=== PATIENT | female | born 1970 | race Caucasian/White ===

== ENCOUNTER 2017-06-16 16:32 | Emergency (ER) | payer MEDICARE, MEDICAID ==
--- NOTE | 2017-06-16 17:20 | ER Document Report ---
HPI - HPI Patient complains to provider of: right lower leg bite, headache Onset: Just prior to arrival Quality of pain: Dull Pain Level: 0 Context: 47 yo female c/o onset of migraine frontal headache during ambulance ride that she called due to bee sting to medial right ankle. It itches. No swelling or systemic systems. Associated Symptoms: None Exacerbated by: Denies Relieved by: Denies Similar symptoms previously: No Recently seen / treated by doctor: No - ROS ROS below otherwise negative: Yes Systems Reviewed and Negative: Yes All other systems reviewed and negative Past Medical History - General Information source: Patient - Social History Smoking Status: Current Every Day Smoker Frequency of alcohol use: None Drug Abuse: None Lives with: Family Family History: Reviewed & Not Pertinent - Medical History Medical History: Negative Surgical Hx: Negative Vertical Provider Document - CONSTITUTIONAL Agree With Documented VS: Yes Exam Limitations: No Limitations General Appearance: No Apparent Distress - INFECTION CONTROL TRAVEL OUTSIDE OF THE [place] IN LAST 30 DAYS: No - HEENT HEENT: Normal ENT Exam, Normocephalic - NECK Neck: Supple - RESPIRATORY Respiratory: Breath Sounds Normal, No Respiratory Distress - CARDIOVASCULAR Cardiovascular: Regular Rate, Regular Rhythm - GI/ABDOMEN Gastrointestinal: Abdomen Soft, Abdomen Non-Tender - MUSCULOSKELETAL/EXTREMETIES Musculoskeletal/Extremeties: MAEW - NEURO Level of Consciousness: Awake, Alert Motor/Sensory: No Motor Deficit, No Sensory Deficit - DERM Notes: mild pink 3 cm area with central sting site, no swelling or lymphangitis. Course - Re-evaluation Re-evalutation: 06/16/17 19:02 Headache is level 1/5 she feels a lot better - Vital Signs Vital signs: Temp Pulse Resp BP Pulse Ox 97.6 F 102 H 20 127/84 H 95 06/16/17 16:49 06/16/17 16:49 06/16/17 16:49 06/16/17 16:49 06/16/17 16:49 Discharge - Discharge Clinical Impression: Insect sting, Headache Condition: Good Disposition: HOME, SELF-CARE Instructions: Intravenous Compazine for Headaches ([facility]), Use of Diphenhydramine , Headache ([facility]), Toradol Injection ([facility]) Additional Instructions: [id number] Benadryl for the itching insect bite Keep your fingernails clean and short so it does not get an infection Return to the emergency room any concerns See Dr. Marley your doctor for follow-up Referrals: BUD MARLEY, [Primary Care Provider] - Follow up as needed
[2017-06-16] MEDS ORDERED: NORMAL SALINE 1000 ML 1,000 ML IV ONE (17:24)
[2017-06-16] MEDS ORDERED: DIPHENHYDRAMINE HCL 50 MG/ML VIAL IV ONE (17:24)
[2017-06-16] MEDS ORDERED: PROCHLORPERAZINE EDISYLATE INJ 10 MG/2 ML VIAL IV ONE (17:24)
[2017-06-16] MEDS ORDERED: KETOROLAC TROMETHAMINE INJ/PF 30 MG/1 ML SDV IV ONE (17:24)
[2017-06-16 19:14] VITALS: BP 95/53
== END 2017-06-16 19:14 | disposition home or self-care (01) ==
LOC: ER 16:32
DX: T63.441A Toxic effect of venom of bees, accidental (unintentional), initial encounter (principal); G43.909 Migraine, unspecified, not intractable, without status migrainosus; F17.200 Nicotine dependence, unspecified, uncomplicated
CPT/HCPCS: 99282; 96361; 96374; 96375; J1200; J1885; J0780; J7030

== ENCOUNTER 2017-10-04 17:32 | Emergency (ER) | payer MEDICARE, MEDICAID ==
--- NOTE | 2017-10-04 19:25 | ER Document Report ---
ED Medical Screen (RME) - General Chief Complaint: Psych Problem Stated Complaint: SUICIDAL IDEATION Time Seen by Provider: 10/04/17 19:22 Notes: 47-year-old female was brought in by [facility]'s deputies for involuntary psychiatric evaluation. The patient had left the camper she was staying in an [place] and moved in with a dexter here in [place]. Her emotional support and will last night. She stated that she did not take that well. This morning the gentleman she moved in with sent her a text saying that she had to go. She at that point lost it and sent him a text that she is going to kill all her animals and herself. He at that point called the police and they brought her here. Patient stated she was not really suicidal she just wanted to make him feel bad. She denies any homicidal ideation denies visual auditory hallucinations. States she does feel sad because her emotional support animal has the camper she was staying in in [place] has been sold and she has no home and is homeless. TRAVEL OUTSIDE OF THE [place] IN LAST 30 DAYS: No - Related Data Allergies/Adverse Reactions: desipramine [From Norpramin] Allergy (Verified 06/16/17 16:36) levofloxacin [From Levaquin] Allergy (Verified 06/16/17 16:36) nortriptyline Allergy (Verified 06/16/17 16:36) bees Allergy (Uncoded 06/16/17 16:36) Past Medical History Renal/ Medical History: Denies: Hx Peritoneal Dialysis Past Surgical History: Reports: Hx Orthopedic Surgery - left knee, bilat elbows Physical Exam - Vital signs Vitals: Temp Pulse Resp BP Pulse Ox 98.5 F 81 18 112/72 97 10/04/17 17:58 10/04/17 17:58 10/04/17 17:58 10/04/17 17:58 10/04/17 17:58 - Notes Notes: Flat affect, currently denies suicidal thoughts or plan denies visual auditory hallucinations seems to have reasonable memory and judgment Course - Re-evaluation Re-evalutation: 10/04/17 19:24 Patient was brought in via police for psychiatric evaluation. Patient is requesting a psychiatric evaluation but is currently denying suicidal ideation or plan. Patient stated she does feel sad and despondent over having nowhere to live and that her emotional support animal has . - Vital Signs Vital signs: Temp Pulse Resp BP Pulse Ox 98.5 F 81 18 112/72 97 10/04/17 17:58 10/04/17 17:58 10/04/17 17:58 10/04/17 17:58 10/04/17 17:58 Doctor's Discharge - Discharge Referrals: BUD GALLO DO [Primary Care Provider] - Follow up as needed
[2017-10-04 19:57] LABS: ABSOLUTE BASOPHILS # (AUTO) 0.1 10^3/uL (0.0-0.2); ABSOLUTE EOSINOPHILS # (AUTO) 0.2 10^3/uL (0.0-0.6); ABSOLUTE LYMPHOCYTES (AUTO) 2.4 10^3/uL (0.5-4.7); ABSOLUTE MONOCYTES (AUTO) 0.8 10^3/uL (0.1-1.4); ABSOLUTE NEUT (AUTO) 6.6 10^3/uL (1.7-8.2); BASOPHILS % (AUTO) 0.5 % (0-2); EOSINOPHILS % (AUTO) 1.7 % (0-6); HEMATOCRIT 43.8 % (36.0-47.0); HEMOGLOBIN 14.4 g/dL (12.0-15.5); LYMPHOCYTES % (AUTO) 23.9 % (13-45); MEAN CORPUSCULAR HEMOGLOBIN 29.6 pg (27.0-33.4); MEAN CORPUSCULAR HGB CONC 32.9 g/dL (32.0-36.0); MEAN CORPUSCULAR VOLUME 90 fl (80-97); PLATELET COUNT 417 10^3/uL (150-450); RED BLOOD COUNT 4.86 10^6/uL (3.72-5.28); RED CELL DISTRIBUTION WIDTH 13.9 % (11.5-14.0); SEGMENTED NEUTROPHILS % (AUTO) 65.9 % (42-78); TOTAL CELLS COUNTED % (AUTO) 100 %
[2017-10-04 20:05] LABS: APPEARANCE,URINE CLOUDY; BILIRUBIN,URINE NEGATIVE (NEGATIVE); CALCIUM OXALATE CRYSTALS,URINE MANY /HPF; COLOR,URINE AMBER; GLUCOSE, URINE NEGATIVE (NEGATIVE); KETONES,URINE NEGATIVE (NEGATIVE); LEUKOCYTE ESTERASE,URINE MODERATE (NEGATIVE); NITRITE,URINE NEGATIVE (NEGATIVE); PROTEIN,URINE >=500 mg/dL (NEGATIVE); URINE SPECIFIC GRAVITY 1.031
[2017-10-04 20:17] LABS: ALANINE AMINOTRANSFERASE 34 U/L (9-52); ALBUMIN 4.5 g/dL (3.5-5.0); ALKALINE PHOSPHATASE 61 U/L (38-126); ANION GAP 13 (5-19); ASPARTATE AMINO TRANSFERASE 30 U/L (14-36); BILIRUBIN,DIRECT 0.2 mg/dL (0.0-0.4); BILIRUBIN,TOTAL 0.2 mg/dL (0.2-1.3); BLOOD UREA NITROGEN 11 mg/dL (7-20); CARBON DIOXIDE 26 mmol/L (22-30); CHLORIDE 105 mmol/L (98-107); GLUCOSE 84 mg/dL (75-110); POTASSIUM 4.5 mmol/L (3.6-5.0); SODIUM 144.4 mmol/L (137-145); TOTAL PROTEIN 8.3 g/dL (6.3-8.2)
[2017-10-04 20:19] LABS: ACETAMINOPHEN < 10 ug/mL (10-30); ALCOHOL < 10 mg/dL (NONE DETECTED); SALICYLATE < 1.0 mg/dL (2.0-20.0)
[2017-10-04 20:25] LABS: URINE AMPHETAMINES SCREEN NEGATIVE; URINE BARBITURATES SCREEN NEGATIVE; URINE BENZODIAZEPINES SCREEN NEGATIVE; URINE COCAINE SCREEN UNCONFIRMED POSITIVE; URINE MARIJUANA (THC) SCREEN UNCONFIRMED POSITIVE; URINE METHADONE SCREEN NEGATIVE; URINE PHENCYCLIDINE SCREEN NEGATIVE
--- NOTE | 2017-10-04 20:31 | EKG REPORT ---
SEVERITY:- NORMAL ECG - SINUS RHYTHM : Confirmed by: El Tyler MD 04-Oct-2017 20:31:13
[2017-10-04] MEDS ORDERED: CEPHALEXIN 500 MG CAPSULE PO ONE (20:54)
--- NOTE | 2017-10-04 21:20 | ER Document Report ---
ED General - General Chief Complaint: Psych Problem Stated Complaint: SUICIDAL IDEATION Time Seen by Provider: 10/04/17 19:22 Notes: Patient is a 47-year-old female without chronic medical problems, polysubstance abuser, who presents after apparently texting her significant other that she was going to kill herself and all of her animals after he told her she needed to leave his house. Patient was brought in by [facility] on a voluntary basis. At some my assessment the patient states that she does not actually want to hurt herself and has no intention of harming her animals. She reports that she texted her significant other this to "piss him off" and laughs when I say "do you think you got what you wanted?". She denies a history of similar events in the past. She denies any previous suicide attempts. She does report a history of depression but denies any ongoing treatment. She denies any acute medical complaints. Nothing improves or worsens her current symptoms. TRAVEL OUTSIDE OF THE [place] IN LAST 30 DAYS: No - Related Data Allergies/Adverse Reactions: desipramine [From Norpramin] Allergy (Verified 06/16/17 16:36) levofloxacin [From Levaquin] Allergy (Verified 06/16/17 16:36) nortriptyline Allergy (Verified 06/16/17 16:36) bees Allergy (Uncoded 06/16/17 16:36) Past Medical History - General Information source: Patient - Social History Smoking Status: Current Every Day Smoker Chew tobacco use (# tins/day): No Frequency of alcohol use: Social Drug Abuse: None Lives with: Homeless Family History: Reviewed & Not Pertinent Patient has suicidal ideation: No Patient has homicidal ideation: No Renal/ Medical History: Denies: Hx Peritoneal Dialysis Past Surgical History: Reports: Hx Orthopedic Surgery - left knee, bilat elbows Review of Systems - Review of Systems Notes: Constitutional: Negative for fever. HENT: Negative for sore throat. Eyes: Negative for visual changes. Cardiovascular: Negative for chest pain. Respiratory: Negative for shortness of breath. Gastrointestinal: Negative for abdominal pain, vomiting or diarrhea. Genitourinary: Negative for dysuria. Musculoskeletal: Negative for back pain. Skin: Negative for rash. Neurological: Negative for headaches, weakness or numbness. 10 point ROS negative except as marked above and in HPI. Physical Exam - Vital signs Vitals: Temp Pulse Resp BP Pulse Ox 98.5 F 81 18 112/72 97 10/04/17 17:58 10/04/17 17:58 10/04/17 17:58 10/04/17 17:58 10/04/17 17:58 Interpretation: Normal Notes: PHYSICAL EXAMINATION: GENERAL: Well-appearing, well-nourished and in no acute distress. HEAD: Atraumatic, normocephalic. EYES: Pupils equal round and reactive to light, extraocular movements intact, sclera anicteric, conjunctiva are normal. ENT: nares patent, oropharynx clear without exudates. Moist mucous membranes. NECK: Normal range of motion, supple without lymphadenopathy LUNGS: Breath sounds clear to auscultation bilaterally and equal. No wheezes rales or rhonchi. HEART: Regular rate and rhythm without murmurs ABDOMEN: Soft, nontender, normoactive bowel sounds. No guarding, no rebound. No masses appreciated. EXTREMITIES: Normal range of motion, no pitting or edema. No cyanosis. NEUROLOGICAL: No focal neurological deficits. Moves all extremities spontaneously and on command. PSYCH: Appears ambivalent to being in the emergency department. Laughing and joking well texting on her cell phone. SKIN: Warm, Dry, normal turgor, no rashes or lesions noted. Course - Re-evaluation Re-evalutation: 10/04/17 21:19 Patient presents with a suicide gesture without true suicidal intention. The patient reports that the text message was explicitly to obtain attention and to "pissed off" her significant other. She states that she has no intention of harming herself, states she regrets sending the text message although seems to laugh about the effectiveness of this measure as she is currently now talking to her significant other on her cell phone. She is determining whether or not she would like to stay on a voluntary basis although she does not percent with any acute safety concerns at this time point to mandate involuntary commitment. She denies any acute medical concerns. 10/05/17 04:09 Patient does not have anywhere to go and so has decided to remain in the emergency department overnight and will speak to psychiatry and social work in the morning. Her medical screening laboratories do show findings consistent with an acute urinary tract infection. Cephalexin has been started and a culture has been sent. A prescription for cephalexin has been placed on the patient's chart. Patient will remain on a voluntary basis. - Vital Signs Vital signs: Temp Pulse Resp BP Pulse Ox 98.5 F 81 18 112/72 97 10/04/17 17:58 10/04/17 17:58 10/04/17 19:20 10/04/17 17:58 10/04/17 17:58 - Laboratory Result Diagrams: 10/04/17 19:26 10/04/17 19:26 Laboratory results interpreted by me: 10/04/17 10/04/17 19:26 19:26 Total Protein 8.3 H Urine Protein >=500 H Urine Blood LARGE H Urine Urobilinogen 2.0 H Ur Leukocyte Esterase MODERATE H Salicylates < 1.0 L Acetaminophen < 10 L - EKG Interpretation by Me Additional EKG results interpreted by me: 10/05/17 04:09 Sinus rhythm. Rate 69. No ST elevations or depressions. QTC is 420. Discharge - Discharge Clinical Impression: Suicide gesture Qualifiers: Encounter type: initial encounter Qualified Code(s): X83.8XXA - Intentional self-harm by other specified means, initial encounter Depression Qualifiers: Depression Type: unspecified Qualified Code(s): F32.9 - Major depressive disorder, single episode, unspecified UTI (urinary tract infection) Qualifiers: Urinary tract infection type: acute cystitis Hematuria presence: with hematuria Qualified Code(s): N30.01 - Acute cystitis with hematuria Condition: Good Disposition: HOME, SELF-CARE Additional Instructions: Please return if you have thoughts of wanting to hurt yourself, hurt others, or have any other symptoms that are concerning to you. Prescriptions: Cephalexin Monohydrate [Keflex 500 mg Capsule] 500 mg PO Q6H 5 Days capsule Referrals: BUD GALLO DO [NO LOCAL MD] - Follow up as needed
[2017-10-05 07:33] VITALS: BP 110/75
--- NOTE | 2017-10-05 13:04 | PSYCHOLOGICAL NOTE ---
Psych Note - Psych Note Psych Note: Reason for Consult: suicidal ideation Consent permissions: none provided Pt presented to the ED with complaints of psych eval. Pt reports that she voluntarily came in for a psychiatric evaluation. Pt reports that her significant other was kicking her out of the home and pt reports "I sent in a text that I was going to kill all my animals and myself." Pt denies SI at this time. Pt denies HI, hallucinations, hearing voices. Pt denies having a plan. Clinician spoke with patient who disclosed that she told her ex that she wanted to kill the animals and herself because she wanted to "piss him off." Patient denies wanting to hurt herself and is adamant that she would never hurt her animals. She discloses that she is unsure of where she will actually live however is not worried because she plans to stay with a friend. She discloses that she would like information on the local [facility]ci and food bank resources. She reports that she has an outpatient mental health provider up in [place] and receives both therapy and medication management. She discloses last time she is ever been inpatient was back in 2004. She reports the stressor back in 2004 was when her mother had from ovarian cancer and 6 months later she was diagnosed with ovarian cancer herself. She denies any recent thoughts of wanting to harm herself. Patient is alert and orientated to person, place, time and circumstance. Mood is euthymic with congruent affect as evidenced by smiling laughing engaging with clinician. Patient denies suicidal and homicidal ideation reports she made suicidal comments to her ex-boyfriend to "piss him off." Delusions are absent behaviors congruent with intact reality based presentation i.e. organized and linear thought process. Eye contact was well-maintained. Conversational speech is within normal rate, tone and prosody. Intellectual abilities appear to be within average range. Attention and concentration are good. Insight, judgment, impulse control are fair. No medication or conditions at this time 296.80 (F31.9) unspecified bipolar and related disorder per history provided by patient Impression\\plan: Patient is cleared from acute psychiatric services. Patient discloses making comments to her ex-boyfriend and attempt to get an reaction. Patient denies suicidal ideation. Patient has an outpatient mental health provider in [place] he receives both therapy and medication management. Patient's presentation is euthymic with congruent affect as evidenced by smiling laughing and openly engaging with clinician. Patient discusses plan of same with a friend and requests additional information on the fci and food segal. Patient is recommended to continue following up with her outpatient mental health provider. Dr. Olivas was consulted and the care and management this patient; attending physician is agreement with her conditions and disposition.
== END 2017-10-05 07:38 | disposition home or self-care (01) ==
LOC: ER 17:32
DX: F32.9 Major depressive disorder, single episode, unspecified (principal); R45.851 Suicidal ideations; N30.01 Acute cystitis with hematuria; F17.200 Nicotine dependence, unspecified, uncomplicated; Z59.0 Homelessness; Z88.1 Allergy status to other antibiotic agents; Z88.8 Allergy status to other drugs, medicaments and biological substances; Z91.030 Bee allergy status
CPT/HCPCS: 93005; 99285; 36415; 87086; 80307 ×4; 85025; 87088; 80053; 81001; 87186; 93010; A9270